=== PATIENT | male | born 1980 | race Caucasian/White ===

== ENCOUNTER 2019-03-24 09:31 | Emergency (ER) | payer OTHER ==
[~2019-03-24] VITALS: Ht 182.9 cm; Wt 94.8 kg
== END 2019-03-24 17:23 | disposition home or self-care (01) ==
LOC: ER 09:31
DX: K57.92 Diverticulitis of intestine, part unspecified, without perforation or abscess without bleeding (principal)

== ENCOUNTER 2021-02-12 17:35 | Emergency (ER) | payer OTHER ==
[~2021-02-12] VITALS: Ht 182.9 cm; Wt 93.0 kg
[2021-02-12] MEDS ORDERED: SERTRALINE HCL100 MG PO (17:43)
[2021-02-12] MEDS ORDERED: ROSUVASTATIN CA40 MG PO (17:44)
[2021-02-12] MEDS ORDERED: KETO10TA2 PO (20:53)
== END 2021-02-12 21:05 | disposition home or self-care (01) ==
LOC: ER 17:35
DX: K57.90 Diverticulosis of intestine, part unspecified, without perforation or abscess without bleeding (principal)

== ENCOUNTER 2025-05-31 14:52 | Emergency (ER) | payer OTHER ==
[~2025-05-31] VITALS: Ht 182.9 cm; Wt 90.7 kg
[~2025-05-31 14:52] MED LIST: KETO10TA2 PO; ROSUVASTATIN CA40 MG PO; SERTRALINE HCL100 MG PO
[2025-05-31] MEDS ORDERED: EZALLOR SPRINKLE5 MG PO (14:59)
[2025-05-31] MEDS ORDERED: PANTOPRAZOLE SODIUM 40 MG TABLET.DR PO ONE (15:45)
[2025-05-31 17:17] LABS: BASO % 0.2 % (0.1-1.2); EOS # 0.11 (0.04-0.54); EOS % 1.3 % (0.7-7.0); LYMPH # 2.32 (1.18-3.74); LYMPH % 27.9 % (19.3-53.1); MEAN PLATELET VOLUME 10.30 fl (9.4-12.4); MONO # 0.80 (0.24-0.82); MONO % 9.6 % (4.7-12.5); NEUT # 5.05 (1.56-6.13); NEUT % 60.9 % (34.0-71.1); RED CELL DISTRIBUTION WIDTH 12.2 % (11.6-14.4)
[2025-05-31 17:51] LABS: INR 1.03
[2025-05-31 17:55] LABS: ALT/SGPT 38.0 U/L (12-78); AST/SGOT 25.0 U/L (15-37); BILIRUBIN TOTAL 0.76 mg/dL (0.3-1.2); BUN CREA RATIO 15.0 (7.0-25.0); CREATININE SERUM 0.85 mg/dL (0.70-1.30); GFR 96.62; GLOBULINA 3.1 G/DL (2.4-3.5); GLUCOSE FASTING 91.0 mg/dL (65-100); OSMOLALITY SERUM 279.0 MOSM/KG (275-295)
[2025-05-31] MEDS ORDERED: PROTONIX40 MG PO (17:59)
[2025-05-31] MEDS ORDERED: ANALPRAM HC 1%30 GM TOP (17:59)
== END 2025-05-31 18:29 | disposition home or self-care (01) ==
LOC: ER 14:52
PROVIDERS: General Practice
DX: K62.5 Hemorrhage of anus and rectum (principal); R10.9 Unspecified abdominal pain